=== PATIENT | male | born 1995 | race Caucasian/White ===

== ENCOUNTER 2017-08-09 12:57 | Emergency (ER) | payer SELFPAY ==
[2017-08-09] MEDS: BACITRACIN TOPICAL OINT 14GM TUBE. TP (14:19)
[2017-08-09] MEDS: DIPHTH,PERTUSS(ACELL),TET TOX 0.5 ML DISP.SYRIN. VAX IM (14:19)
[2017-08-09] MEDS ORDERED: TETANUS AND DIPHTHERIA TOX/PF 0.5 ML DISP.SYRIN. VAX IM (14:30)
== END 2017-08-09 14:38 | disposition home or self-care (01) ==
LOC: ER 12:57
DX: X58.XXXA Exposure to other specified factors, initial encounter (principal); S80.812A Abrasion, left lower leg, initial encounter; Y93.89 Activity, other specified; Y99.8 Other external cause status; Y92.89 Other specified places as the place of occurrence of the external cause
CPT/HCPCS: 90471; 90715; 99283-25

== ENCOUNTER 2017-10-04 18:14 | Emergency (ER) | payer OTHER | END 2017-10-04 19:15 | disposition home or self-care (01) | LOC: ER 18:14 | DX: S29.012A Strain of muscle and tendon of back wall of thorax, initial encounter (principal); M54.2 Cervicalgia; X50.9XXA Other and unspecified overexertion or strenuous movements or postures, initial encounter; Y93.89 Activity, other specified; Y99.8 Other external cause status; Y92.89 Other specified places as the place of occurrence of the external cause | CPT/HCPCS: 99283 ==